=== PATIENT | male | born 2000 | race Hispanic/Latino ===

== ENCOUNTER 2020-08-25 18:45 | Inpatient (IN) | payer SELFPAY ==
[2020-08-25] MEDS ORDERED: Fentanyl 100 MCG/2 ML VIAL ONE ×3 (18:54→19:48)
[2020-08-25] MEDS ORDERED: Boostrix 0.5 ML (Tdap) VIAL ONE (18:54)
[2020-08-25] MEDS ORDERED: Tranexamic Acid 1,000 MG/10 ML VIAL ONE (19:05)
[2020-08-25 19:36] LABS: #Basophils 0.1 thou/uL (0.0-0.2); #Eosinphils 0.2 thou/uL (0.0-0.7); #Lymphocytes 4.1 thou/uL (1.20-3.40); #Monocytes 0.8 thou/uL (0.11-0.59); #Neutrophils 6.3 thou/uL (1.40-6.50); %Basophils 0.8 % (0.0-1.0); %Eosinophils 1.3 % (0.0-10.0); %Lymphocytes 35.5 % (21.0-51.0); %Monocytes 7.1 % (0.0-10.0); %Neutrophils 55.3 % (42.0-75.0); Hemoglobin 14.2 g/dL (14.0-18.0); Mean Corpuscular HGB CONC 34.4 g/dL (32.0-36.0); Mean Corpuscular Hemoglobin 31.4 pg (27.0-31.0); Mean Corpuscular Volume 91.4 fL (78.0-98.0); Mean Platelet Volume 8.7 fL (7.4-10.4); Platelet Count 252 thou/uL (130-400); Red Blood Cell (RBC) Count 4.52 mill/uL (4.70-6.10); White Blood Cell (WBC) Count 11.4 thou/uL (4.8-10.8)
[2020-08-25] MEDS ORDERED: Protamine Sulfate 50 MG/5 ML VIAL ONE (19:45)
[2020-08-25] MEDS ORDERED: Protamine Sulfate 250 MG/25 ML VIAL ONE (19:45)
[2020-08-25] MEDS ORDERED: Heparin 5,000 UNITS/ML VIAL ONE (19:45)
[2020-08-25] MEDS ORDERED: Midazolam HCl 2 mg/2 ml Vial ONE (19:48)
[2020-08-25 19:57] LABS: ALT (SGPT) 22 U/L (8-55); AST (SGOT) 19 U/L (5-34); Albumin 4.1 g/dL (3.5-5.0); Alkaline Phosphatase 79 U/L (40-110); Anion Gap 20 mmol/L (10-20); BUN (Urea Nitrogen) 6 mg/dL (8.9-20.6); Bilirubin, Total 0.4 mg/dL (0.2-1.2); Calc. Creatinine Clearance 0 mL/min (70-130); Calcium 8.5 mg/dL (7.8-10.44); Carbon Dioxide 16 mmol/L (22-29); Chloride 107 mmol/L (98-107); Glucose 167 mg/dL (70-105); Potassium 3.2 mmol/L (3.5-5.1); Protein, Total 7.1 g/dL (6.0-8.3); Sodium 140 mmol/L (136-145)
[2020-08-25] MEDS ORDERED: PROPOFOL 200 MG/20 ML VIAL ONE (20:13)
[2020-08-25] MEDS ORDERED: Calcium Chloride 1 GM/10 ML Abboject SYRINGE ONE (20:13)
[2020-08-25] MEDS ORDERED: Rocuronium Bromide 10 MG/ML (10ML VIAL) ONE (20:13)
[2020-08-25] MEDS ORDERED: Glycopyrrolate 0.2 MG/ML 5 ML SYRINGE ONE (20:13)
[2020-08-25] MEDS ORDERED: Succinylcholine 200 MG/10 ml SYRINGE FS ONE (20:13)
[2020-08-25] MEDS ORDERED: PHENYLEPHRINE-NS 100 MCG/ML 10 ML SYRINGE ONE ×2 (20:13→21:50)
[2020-08-25] MEDS ORDERED: Lidocaine 1% PF 5 ML VIAL ONE (20:13)
[2020-08-25] MEDS ORDERED: Meperidine HCl/PF 25 MG/ML VIAL ONE (23:09)
[2020-08-25] MEDS ORDERED: Acetaminophen 325 MG TAB PO PRN (23:20)
[2020-08-25] MEDS ORDERED: Ondansetron ODT 4 MG TAB PO PRN (23:20)
[2020-08-25] MEDS ORDERED: Ondansetron HCl/PF 4 MG/2 ML Vial IVP PRN (23:21)
[2020-08-25] MEDS ORDERED: Promethazine HCl 25 MG/ML VIAL SLOW IVP PRN (23:21)
[2020-08-25] MEDS ORDERED: Promethazine HCl 25 MG/ML VIAL IM PRN (23:21)
[2020-08-25] MEDS ORDERED: Fentanyl 100 MCG/2 ML VIAL SLOW IVP PRN (23:23)
[2020-08-25] MEDS ORDERED: traMADol HCl 50 MG TAB PO PRN (23:23)
[2020-08-25] MEDS ORDERED: Sodium Chloride 0.9% 1,000 ML IV SCH (23:30)
[2020-08-26 01:40] VITALS: BMI 29.2
[2020-08-26 04:43] LABS: SARS-CoV-2 NAA Rapid Test Not Detected (NotDetected)
[2020-08-26 05:46] LABS: #Lymphocytes 2.5 thou/uL (1.20-3.40); #Monocytes 1.4 thou/uL (0.11-0.59); #Neutrophils 10.9 thou/uL (1.40-6.50); %Basophils 0.2 % (0.0-1.0); %Eosinophils 0.3 % (0.0-10.0); %Lymphocytes 16.9 % (21.0-51.0); %Monocytes 9.3 % (0.0-10.0); %Neutrophils 73.2 % (42.0-75.0); Hemoglobin 12.9 g/dL (14.0-18.0); Mean Corpuscular HGB CONC 34.5 g/dL (32.0-36.0); Mean Corpuscular Hemoglobin 31.7 pg (27.0-31.0); Mean Corpuscular Volume 91.9 fL (78.0-98.0); Mean Platelet Volume 9.2 fL (7.4-10.4); Platelet Count 149 thou/uL (130-400); RBC Distribution Width 12.9 % (11.5-14.5); Red Blood Cell (RBC) Count 4.06 mill/uL (4.70-6.10); White Blood Cell (WBC) Count 14.9 thou/uL (4.8-10.8)
[2020-08-26 08:09] VITALS: BP 121/70; TEMP 98.2
[2020-08-26] MEDS ORDERED: Amoxicillin/Potassium Clav 500 MG TAB PO SCH ×2 (10:00→21:00)
[2020-08-27] MEDS ORDERED: Aspirin 81 mg Enteric Coated Tablet PO SCH (09:00)
== END 2020-08-26 11:00 | disposition home or self-care (01) | DRG 908 ==
LOC: ERS 18:45 → SURG A 20:11 → SDC 20:15 → SURG A 23:20
PROVIDERS: ADMIT Thoracic Surgery (Cardiothoracic Vascular Surgery); ATTEND Thoracic Surgery (Cardiothoracic Vascular Surgery)
PROC: 06BQ0ZZ Excision of Left Saphenous Vein, Open Approach (ICD-10-PCS; principal; 2020-08-25)
PROC: 0317090 Bypass Right Brachial Artery to Right Upper Arm Artery with Autologous Venous Tissue, Open Approach (ICD-10-PCS; 2020-08-25)
PROC: 30233N1 Transfusion of Nonautologous Red Blood Cells into Peripheral Vein, Percutaneous Approach (ICD-10-PCS; 2020-08-25)
DX: S45.111A Laceration of brachial artery, right side, initial encounter (principal); D62 Acute posthemorrhagic anemia; Z20.822 Contact with and (suspected) exposure to COVID-19; W25.XXXA Contact with sharp glass, initial encounter; F17.210 Nicotine dependence, cigarettes, uncomplicated; S51.011A Laceration without foreign body of right elbow, initial encounter
CPT/HCPCS: 12032; 36415; 36430; 71045; 80053; 85025; 86850; 86900; 86901; 90471; 90715; 96365; 96374; 96375; 96376; J0690; J1644; J2175; J2250; J2704; J2720; J3010; P9016; Q0162; U0002